=== PATIENT | male | born 1950 | race Caucasian/White ===

== ENCOUNTER 2017-04-12 19:47 | Inpatient (IN) | payer BC ==
--- NOTE | 2017-04-12 20:13 | PDOC ---
History of Present Illness - General History Source: Patient Exam Limitations: No Limitations - History of Present Illness Initial Comments: 04/12/17 21:11 Patient is a 66 year old male with a significant past medical history of who was brought by EMS to the ED s/p loss of consciousness that occured this afternoon. As per patient's son, patient was found on the floor of his bathroom after getting ready to get in the shower. Patient sons states patient stated the last thing remembered before losing consciousness was turning on the water before being woken up by son. Patient reports experiencing multiple episodes of vomiting throughout the day, beginning this morning. He states he felt like he was vomiting every 3 minutes. As per patient's daughter patient reported that he experiencing an episode of loss of consciousness in the driveway this afternoon after returning home from work. Patient reports experiencing slight chest pain over heart that he states is rated to be a 7/10 in intensity but is unsure if it is related to the feinting. Patient's daughter states she noticed stool on patient's work clothes when she got home. Patient's kids are unsure if patient hit head when he experienced episodes of loss of consciousness. Denies fever, chills. Denies contact with sick individuals, out of state contact. Denies any other symptoms. Allergies: None Social history: No smoking. No alcohol. No illicit drugs. Surgical history: None PMD: Dr. Rodriguez. <Sean Berry - Last Filed: 04/12/17 21:11> <Sydnee Eason - Last Filed: 04/13/17 01:02> - General Chief Complaint: Syncope/Near Syncope Stated Complaint: Syncope/Near Syncope Time Seen by Provider: 04/12/17 20:13 Past History <Sean Berry - Last Filed: 04/12/17 21:11> - Suicide/Smoking/Psychosocial Hx Smoking History: Unknown if ever smoked Have you smoked in the past 12 months: No Information on smoking cessation initiated: No Hx Alcohol Use: No Drug/Substance Use Hx: No <Sydnee Eason - Last Filed: 04/13/17 01:02> - Past Medical History Allergies/Adverse Reactions: Allergies Allergy/AdvReac Type Severity Reaction Status Date / Time No Known Allergies Allergy Verified 04/12/17 20:04 Review of Systems - Review of Systems Able to Perform ROS?: Yes Comments:: 04/12/17 21:11 GENERAL/CONSTITUTIONAL: No fever or chills. No weakness. HEAD, EYES, EARS, NOSE AND THROAT: No change in vision. No ear pain or discharge. No sore throat. GASTROINTESTINAL: +Nausea. +vomiting. No diarrhea or constipation. GENITOURINARY: No dysuria, frequency, or change in urination. CARDIOVASCULAR: +Left sided Chest pain No shortness of breath. RESPIRATORY: No cough, wheezing, or hemoptysis. MUSCULOSKELETAL: No joint or muscle swelling or pain. No neck or back pain. SKIN: No rash NEUROLOGIC: No headache, vertigo, loss of consciousness, or change in strength/ sensation. ENDOCRINE: No increased thirst. No abnormal weight change. HEMATOLOGIC/LYMPHATIC: No anemia, easy bleeding, or history of blood clots. ALLERGIC/IMMUNOLOGIC: No hives or skin allergy. All Other Systems: Reviewed and Negative <Sean Berry - Last Filed: 04/12/17 21:11> *Physical Exam - Vital Signs Last Vital Signs Temp Pulse Resp BP Pulse Ox 120 H 16 120/86 98 04/12/17 20:04 04/12/17 20:04 04/12/17 20:04 04/12/17 20:04 - Physical Exam Comments: 04/12/17 21:11 GENERAL: +Patient becomes nauseous when sitting up. Awake, alert, and fully oriented, in no acute distress HEAD: No signs of trauma EYES: PERRLA, EOMI, sclera anicteric, conjunctiva clear ENT: Auricles normal inspection, hearing grossly normal, nares patent, oropharynx clear without exudates. Moist mucosa NECK: Normal ROM, supple, no lymphadenopathy, JVD, or masses LUNGS: Breath sounds equal, clear to auscultation bilaterally. No wheezes, and no crackles HEART: +Tachycardic. Regular rate and rhythm, normal S1 and S2, no murmurs, rubs or gallops ABDOMEN: Soft, nontender, normoactive bowel sounds. No guarding, no rebound. No masses EXTREMITIES: Normal range of motion, no edema. No clubbing or cyanosis. No cords, erythema, or tenderness NEUROLOGICAL: Cranial nerves II through XII grossly intact. Normal speech, normal gait SKIN: Warm, Dry, normal turgor, no rashes or lesions noted. <Sean Berry - Last Filed: 04/12/17 21:11> - Vital Signs Last Vital Signs Temp Pulse Resp BP Pulse Ox 120 H 16 120/86 98 04/12/17 20:04 04/12/17 20:04 04/12/17 20:04 04/12/17 20:04 <Sydnee Eason - Last Filed: 04/13/17 01:02> Heart Score/ECG Review - ECG Impressions Comment:: EKG read 21:38- sinus tach 123 bpm, no acute ST/T changes <Sydnee Eason - Last Filed: 04/13/17 01:02> ED Treatment Course - LABORATORY CBC & Chemistry Diagram: 04/12/17 20:48 04/12/17 20:48 <Sean Berry - Last Filed: 04/12/17 21:11> - LABORATORY CBC & Chemistry Diagram: 04/12/17 20:48 04/12/17 20:48 <Sydnee Eason - Last Filed: 04/13/17 01:02> Medical Decision Making - Medical Decision Making 04/12/17 22:20 Results d/w patient and family at bedside. Trop negative. CTH no acute findings. Will go forward with CTA chest to r/o PE. Regardless of results, will admit to tele. 04/13/17 01:00 Results d/w Dr. Rodriguez, will admit to tele. CTA shows no definite PE, but slightly limited by suboptimal contrast opacification. Results d/w patient's family as well. <Sydnee Eason - Last Filed: 04/13/17 01:02> *DC/Admit/Observation/Transfer - Attestations Scribe Attestion: 04/12/17 21:12 Documentation prepared by Sean Berry, acting as durable medical equipment technician for Sydnee Eason MD, /DO. <Sean Berry - Last Filed: 04/12/17 21:11> - Discharge Dispostion Admit: Yes <Sydnee Eason - Last Filed: 04/13/17 01:02> Diagnosis at time of Disposition: Syncope Qualifiers: Syncope type: unspecified Qualified Code(s): R55 - Syncope and collapse - Discharge Dispostion Condition at time of disposition: Guarded - Referrals Referrals: Jana Rodriguez MD [Primary Care Provider] - - Patient Instructions - Post Discharge Activity
[2017-04-12] MEDS ORDERED: ONDANSETRON 4 MG/2 ML VIAL IVPUSH ONE (20:36)
[2017-04-12] MEDS ORDERED: SODIUM CHLORIDE 1,000 ML IV STA ×2 (20:36→20:47)
[2017-04-12 21:11] LABS: MONO # 0.4 #; PLATELET COUNT 216 K/MM3 (134-434)
[2017-04-12 21:18] LABS: LYMPH # 0.2; MCH 31.1 pg (25.7-33.7); MCHC 33.8 g/dl (32.0-35.9); MEAN CELL VOLUME 92.2 fl (80-96); MEAN PLT VOLUME 9.1 fl (7.5-11.1); NEUT # 9.9 #; RDW 13.4 % (11.9-15.9); WHITE BLOOD COUNT 10.5 K/mm3 (4.0-10.0)
[2017-04-12 21:30] LABS: PROTHROMBIN TIME (PATIENT) 11.3 SEC (9.98-11.88)
[2017-04-12 21:41] LABS: ALBUMIN 4.1 g/dl (3.4-5.0); ANION GAP 7 (8-16); CALCIUM 9.1 mg/dL (8.5-10.1); CO2 25 mmol/L (21-32); CREATININE 1.2 mg/dL (0.7-1.3); GLUCOSE,RANDOM 139 mg/dL (74-106); SGOT/AST 14 U/L (15-37); SGPT/ALT 25 U/L (12-78)
[2017-04-12 21:46] LABS: ALK PHOS 75 U/L (45-117); BILIRUBIN,TOTAL 0.9 mg/dL (0.2-1.0); CPK 113 IU/L (39-308); TOT PROT 7.6 g/dl (6.4-8.2); TROPONIN I < 0.02 ng/ml (0.00-0.05)
[2017-04-12] MEDS ORDERED: morphine CARPU-JECT 4 MG/1 ML DISP.SYRIN IVPUSH ONE (22:22)
[2017-04-12] MEDS ORDERED: morphine CARPU-JECT 10 MG/1 ML DISP.SYRIN ONE (23:00)
[2017-04-12] MEDS ORDERED: ONDANSETRON 4 MG/2 ML VIAL ONE (23:01)
[2017-04-12 23:46] LABS: PLATELET COMMENTS NO CLOTTING DETECTED; PLATELET ESTIMATE ADEQUATE; TOXIC GRANULATION OCCASIONAL
[2017-04-13 05:08] VITALS: BMI 28.8
--- NOTE | 2017-04-13 10:04 | HP ---
DATE OF ADMISSION: 04/13/2017 HISTORY OF PRESENT ILLNESS: This is a 66-year-old male known to me for about 2 years. He was brought to the emergency room yesterday with components of loss of consciousness, syncopal attack, and he was found in the bathroom. According to the patient today, yesterday morning he went to work. When he was working also he was having vomiting sensation and was throwing up, and after coming home, when he was in the car, he had passed out for a passed out for a few minutes (he does not remember how much time). Then, he went inside the home, and he was throwing up again. Then, he almost fell in the bathroom. When he came to the emergency room, he was awake and talking, and he was found to have sinus tachycardia about 120 per minute. This morning, he does not have any complaints. PHYSICAL EXAMINATION: Vital signs: On examination, blood pressure is 120/84, pulse 80, respirations 20, temperature 98. HEENT: Unremarkable. Neck: Supple. No JVD. Lungs: Clear. Heart: S1, S2 normal. No S3, S4. Abdomen: Soft. Extremities: Legs no edema. Neurologic: Grossly normal. DIAGNOSTIC DATA: CT scan and chest x-ray done in the ER negative. LABORATORY WORK: WBC 10, hemoglobin 15, hematocrit 47, platelets 216. Chemistry: Sodium 137, potassium 4.9, chloride 105, BUN 16, creatinine 1.2, blood sugar 139. INR 1. LFTs borderline elevated. B peptide 243, albumin 3, IMPRESSION: Syncope, viral syndrome. Syncope most likely could be cardiac. PLAN: Cardiology consult. Will follow cardiac monitoring. Continue his present medications. Davy [id number]
[2017-04-13] MEDS: LEVOTHYROXINE NA 25 MCG TABLET (FP) PO SCH (11:52)
[2017-04-13] MEDS: ACETAMINOPHEN 325 MG TABLET (FP) PO PRN ×2 (12:49→18:27)
[2017-04-13] MEDS: amLODIPine BESYLATE 5 MG TABLET (FP) PO SCH (12:50)
--- NOTE | 2017-04-13 13:05 | EKG ---
Test Reason : Blood Pressure : / mmHG Vent. Rate : 123 BPM Atrial Rate : 123 BPM P-R Int : 140 ms QRS Dur : 082 ms QT Int : 304 ms P-R-T Axes : 052 008 041 degrees QTc Int : 435 ms SINUS TACHYCARDIA OTHERWISE NORMAL ECG WHEN COMPARED WITH ECG OF 04-JUL-2002 04:11, NO SIGNIFICANT CHANGE WAS FOUND Confirmed by MAHENDRA WAY MD ([id number]) on 04/13/2017 1:05:08 PM Referred By: Confirmed By:MAHENDRA WAY MD
--- NOTE | 2017-04-13 20:44 | CONS ---
DATE OF CONSULTATION: 04/13/2017 CARDIOLOGY CONSULTATION REQUESTED BY: Jana Rodriguez MD CHIEF COMPLAINT: Loss of consciousness; recurring nausea, vomiting and retching. The patient is a 66-year-old [place] gentleman with history hypertension, thyroid disorder, hypercholesterolemia, was at work when he started to feel nauseous, accompanied by abdominal discomfort. He went to the bathroom and had episodes of vomiting, came out, the nausea persisted, and was accompanied by retching. He felt weak and, as the symptoms persisted, he decided to come home, and after parking his car, he was walking in the driveway, had ongoing retching, and the next thing, he found himself lying on the driveway. He states that he did not sustain any injuries when inside the house. He laid down on the couch, was experiencing chills and rigors, but he is not sure whether he had temperature. His came and he told her that he would only like to have soup for dinner. In the interim, he got up and went to the bathroom to take a shower. He had to move his bowels and states that he had a large diarrheal episode. He turned the shower on and the next thing he remembers is his family had called paramedics and he was brought to the hospital. There is no history of palpitations, chest pain or discomfort. No history of acute shortness of breath. He does experience exertional dyspnea, especially walking up an incline. No history of paroxysmal nocturnal dyspnea or orthopnea. PAST HISTORY: 1. As mentioned in the history of present illness. 2. History of a possible pneumonia. 3. History of renal lithiasis on 2 different occasions. SURGICAL HISTORY: There is no surgical intervention reported. SOCIAL HISTORY: He works at a [employer], is , has 1 daughter. He stopped smoking 15 years ago. Denies excessive use of caffeine. Has 2 glasses of wine. FAMILY HISTORY: Father at the age of 80, apparently related to multiple myeloma. Mother at 80 due to carcinoma and also had diabetes mellitus. He has 3 brothers who are apparently healthy. ALLERGIES: He is intolerant to CHOCOLATE, causes hiccups; and also is intolerant to PICKLES. CURRENT MEDICATIONS: 1. Amlodipine 5 mg p.o. daily. 2. Lipitor 20 mg p.o. daily. 3. Levothyroxine 25 mcg p.o. daily. 4. Tylenol 650 mg p.o. q.4 h. p.r.n. Patient takes 2 Tylenol every morning before going to work. REVIEW OF SYSTEMS: Constitutional: History of chills, rigors. No history of night sweats. No history of unintentional weight loss. HEENT: No history of headaches, diplopia, blurred vision. No history of epistaxis, hoarseness, tinnitus or deafness reported. Cardiovascular: No history of chest pain or discomfort. See history of present illness. Respiratory: No history of cough, expectoration or hemoptysis. No history of tuberculosis. Gastrointestinal: See history of present illness. Cerebrovascular: See history of present illness. No history of seizures. Genitourinary: No history of dysuria, frequency, or hematuria reported. Endocrine: No history of polyuria or polydipsia. See history of present illness. Musculoskeletal: No history of myalgias or arthralgias. Hematological: No history of ecchymosis, anemia, or bleeding. EXAMINATION: General: A 66-year-old obese gentleman, who was in no acute distress. No pallor, cyanosis, clubbing, or jaundice. Vital Signs: Weight 168 pounds. Blood pressure 123/67 mmHg. Pulse 101 beats per minute. Temperature 99.6 degrees Fahrenheit. Neck: Supple. No jugular venous distention. Carotids were 2+. Upstrokes were normal. There was right carotid bruit versus radiation of murmur. No hepatomegaly was present. Heart: PMI was in the 5th intercostal space. No heaves or thrills. Heart sounds were distant. A grade 1/6 ejection systolic murmur was heard at the 2nd right intercostal space in held expiration. No diastolic murmur or gallops were heard. Lungs: Clear on auscultation. Abdomen: Obese, soft, and nontender. No hepatosplenomegaly or palpable masses were felt. Bowel sounds were decreased. No bruits were heard. Extremities: No calf tenderness or dependent edema. Pulses were equal. LABORATORY DATA: Chemistry, April 12, 2017: Sodium 137, potassium 4.9, chloride 105, CO2 25 mmol/L, BUN 16, creatinine 1.2 mg/dL. Random glucose 139 mg/dL. CK 113, troponin less than 0.02. CBC: WBC count 10,500, hemoglobin 15.9 g/dL, platelet count 216,000. Differential: Neutrophils 79%, bands 15.0%, lymphocytes 4.0, monocytes 2%. were noted. ECG April 12, 2017: Sinus tachycardia, RSR prime in V1, normal ST and T waves. CT of the chest and thorax: Impression: There is no gross evidence of pulmonary embolus within the main pulmonary artery and its proximal branches bilaterally. Mild bibasilar atelectatic changes and mild pleural thickening along the left posterolateral chest wall without focal infiltrate. A 1-cm left thyroid lobe nodule. Fluid-filled moderately dilated esophagus down to the GE junction that appears to be patulous and dilated. Correlate clinically. IMPRESSION: 1. Loss of consciousness, etiology: a. Vasovagal. b. Postural hypotension. 2. Nausea, vomiting, abdominal discomfort, and profuse diarrhea, consistent with gastroenteritis. 3. Hypertension, currently normotensive. 4. History of thyroid nodule. 5. History of hypercholesterolemia. 6. Sinus tachycardia, most likely is related to combination of dehydration and low-grade fever. 7. Patulous esophagus associated with dilatation, etiology to be determined. 8. Exogenous obesity. 9. Right carotid bruit versus radiational of murmur. 10. Ejection systolic murmur compatible with aortic valve sclerosis. RECOMMENDATION: 1. Appropriate hydration. 2. In view of CBC findings, low-grade fever, consider ID consultation. 3. Check blood pressure supine and standing. 4. Carotid ultrasound. 5. Echocardiogram for evaluation of systolic murmur. 6. Follow up CBC, comprehensive metabolic profile, hemoglobin A1c. 7. Evaluation of dilated and patulous esophagus. PROGNOSIS: Guarded. Thank you for your referral. Yours sincerely, SCOTT HAMM M.D. [id number]
[2017-04-13] MEDS ORDERED: ATORVASTATIN CA 20 MG TABLET (FP) PO SCH (22:00)
[2017-04-14 06:21] VITALS: BP 131/71; PULSE 98; TEMP 99.3
[2017-04-14] MEDS: LEVOTHYROXINE NA 25 MCG TABLET (FP) PO SCH (06:30)
[2017-04-14 07:23] LABS: BASO % 0.4 % (0-2.0); EOS # 0.1 #; EOS % 0.7 % (0-4.5); LYMPH # 1.3; MCH 30.4 pg (25.7-33.7); MCHC 33.5 g/dl (32.0-35.9); MEAN CELL VOLUME 90.7 fl (80-96); MONO # 1.1 #; NEUT # 6.7 #; NEUT % 73.1 % (42.8-82.8); PLATELET COUNT 180 K/MM3 (134-434); WHITE BLOOD COUNT 9.1 K/mm3 (4.0-10.0)
[2017-04-14 08:17] LABS: ALBUMIN 3.3 g/dl (3.4-5.0); ALK PHOS 57 U/L (45-117); ANION GAP 11 (8-16); BILIRUBIN,TOTAL 0.5 mg/dL (0.2-1.0); CALCIUM 8.6 mg/dL (8.5-10.1); CO2 22 mmol/L (21-32); CREATININE 0.9 mg/dL (0.7-1.3); GLUCOSE,RANDOM 105 mg/dL (74-106); SGOT/AST 17 U/L (15-37); SGPT/ALT 21 U/L (12-78); TOT PROT 6.5 g/dl (6.4-8.2)
--- NOTE | 2017-04-14 08:27 | PN ---
Progress Note, Physician Chief Complaint: No complaints History of Present Illness: Admitted with syncopal episode Also was vomiting. After hospitalization no episodes Dr Tuttle cardiology consult appreciated - Current Medication List Current Medications: Active Medications Acetaminophen (Tylenol -) 650 mg PO Q4H PRN PRN Reason: PAIN Last Admin: 04/13/17 18:27 Dose: 650 mg Amlodipine Besylate (Norvasc -) 5 mg PO DAILY [facility] Last Admin: 04/13/17 12:50 Dose: 5 mg Atorvastatin Calcium (Lipitor -) 20 mg PO HS [facility] Last Admin: 04/13/17 22:03 Dose: 20 mg Levothyroxine Sodium (Synthroid -) 25 mcg PO DAILY@0700 [facility] Last Admin: 04/14/17 06:30 Dose: 25 mcg - Objective Vital Signs: Vital Signs Temperature 99.3 F 04/14/17 06:00 Pulse Rate 98 H 04/14/17 06:00 Respiratory Rate 20 04/14/17 06:00 Blood Pressure 131/71 04/14/17 06:00 O2 Sat by Pulse Oximetry (%) 97 04/13/17 21:00 Constitutional: Yes: No Distress Eyes: Yes: WNL HENT: Yes: WNL Neck: Yes: WNL Cardiovascular: Yes: WNL Respiratory: Yes: WNL Gastrointestinal: Yes: WNL ...Rectal Exam: Yes: Deferred Genitourinary: Yes: WNL Breast(s): Yes: WNL Musculoskeletal: Yes: WNL Edema: No Integumentary: Yes: WNL Neurological: Yes: Alert Psychiatric: Yes: WNL Labs: CBC, BMP 04/14/17 06:20 04/14/17 06:20 INR, PTT INR 1.00 (0.82-1.09) 04/12/17 20:48
[2017-04-14 08:44] LABS: THYROID STIMULATING HORMONE 1.15 uIU/ml (0.358-3.74)
[2017-04-14] MEDS: amLODIPine BESYLATE 5 MG TABLET (FP) PO SCH (09:09)
== END 2017-04-14 10:44 | disposition home or self-care (01) | DRG 312 ==
LOC: JER 19:47 → JERBED 04-13 00:59 → J4W 04-13 04:42
PROVIDERS: ADMIT Internal Medicine; ATTEND Internal Medicine
DX: R55 Syncope and collapse (principal); R11.10 Vomiting, unspecified
CPT/HCPCS: 36415; 70450-TC; 71275-TC; 80053; 82550; 84443; 84484; 85025; 85610; 93005; 93010; 99282-25